=== PATIENT | female | born 1985 | race Caucasian/White ===

== ENCOUNTER 2019-12-21 13:12 | Emergency (ER) | payer MEDICAID ==
[~2019-12-21] VITALS: Ht 157.5 cm; Wt 97.5 kg
--- NOTE | 2019-12-21 13:16 | NUR ---
Patient to ER bed 03 to gown for evaluation. Side rails up.
--- NOTE | 2019-12-21 13:16 | NUR ---
Chelsey alfred in [facility] - 12/21/19 at 1318 by [email or web address] Patient to [facility] 04 to [facility] for evaluation. Side rails up.
--- NOTE | 2019-12-21 13:20 | NUR ---
pt arrives w/ left ankle pain 04/29. Pt twisted her left ankle and fell yesterday. Swelling and brusing noted over the ankle
[2019-12-21 13:23] VITALS: BP_SYST 109
--- NOTE | 2019-12-21 13:28 | NUR ---
KASSY Guzman at bedside examining patient.
[2019-12-21] MEDS ORDERED: IBUPROFEN 800 MG TABLET PO ONE (13:30)
--- NOTE | 2019-12-21 13:35 | NUR ---
Medicated the pt w/ Ibuprofen. Will reassess.
--- NOTE | 2019-12-21 13:40 | NUR ---
x-ray at the bedside
--- NOTE | 2019-12-21 14:12 | NUR ---
pt left ankle was wrapped w/ josie wrap. pt tolerated well
[2019-12-21 14:29] VITALS: BP_SYST 109
--- NOTE | 2019-12-21 14:30 | NUR ---
Patient given written and verbal discharge instructions and verbalizes understanding. ER MD discussed with patient the results and treatment provided. Patient in stable condition. ID arm band removed. intact and dressing applied, no active bleeding. Rx of Ibuprofen given. Patient educated on pain management and to follow up with PMD. Pain Scale 3/10. Opportunity for questions provided and answered. Medication side effect fact sheet provided.
== END 2019-12-21 14:29 | disposition home or self-care (01) ==
LOC: SED 13:12
DX: S93.412A Sprain of calcaneofibular ligament of left ankle, initial encounter (principal); W01.0XXA Fall on same level from slipping, tripping and stumbling without subsequent striking against object, initial encounter; Y93.89 Activity, other specified; Y92.89 Other specified places as the place of occurrence of the external cause; Y99.8 Other external cause status
CPT/HCPCS: 99283